=== PATIENT | female | born 1980 | race Caucasian/White ===

== ENCOUNTER 2024-08-19 08:30 | Outpatient (CLI) | payer BC, MEDICARE | END 2024-08-19 08:31 | disposition home or self-care (01) | LOC: MRI 08:30 | PROVIDERS: ATTEND Family Medicine Sports Medicine | DX: S83.282A Other tear of lateral meniscus, current injury, left knee, initial encounter (principal); M24.19 Other articular cartilage disorders, other specified site ==

== ENCOUNTER 2025-08-27 13:08 | Outpatient (CLI) | payer BC, MEDICARE | END 2025-08-27 13:09 | disposition home or self-care (01) | LOC: CT 13:08 | PROVIDERS: ATTEND Family Medicine | DX: R10.A3 Flank pain, bilateral (principal); N20.0 Calculus of kidney | CPT/HCPCS: 74176 ==